=== PATIENT | male | born 1980 | race African-American/Black ===

== ENCOUNTER 2020-10-22 11:50 | Emergency (ER) | payer SELFPAY ==
[~2020-10-22] VITALS: Ht 200.7 cm; Wt 85.4 kg
[2020-10-22 11:53] VITALS: BP 131/89
--- NOTE | 2020-10-22 14:06 | NUR ---
THIS FLOAT RN AT BEDSIDE TO DC PT FOR PRIMARY RN, QUINCY. PT VERBALIZED UNDERSTANDING TO DC INSTRUCTIONS. AMBULATORY TO CHECKOUT C STEADY GAIT. PT PROVIDED INFORMATION FOR [facility] TO ASSIST WITH FILLING RX. BUS PASS PROVIDED TO PT TRANSPORTATION TO [facility].
== END 2020-10-22 14:08 | disposition home or self-care (01) ==
LOC: ED 13:00
DX: S60.121A Contusion of right index finger with damage to nail, initial encounter (principal); S60.131A Contusion of right middle finger with damage to nail, initial encounter; F17.210 Nicotine dependence, cigarettes, uncomplicated; X58.XXXA Exposure to other specified factors, initial encounter; Y93.89 Activity, other specified; Y92.69 Other specified industrial and construction area as the place of occurrence of the external cause; Y99.8 Other external cause status
CPT/HCPCS: 99283